=== PATIENT | female | born 1965 | race Caucasian/White ===

== ENCOUNTER 2023-08-17 21:38 | Emergency (ER) | payer MEDICARE, SELFPAY ==
[2023-08-17 22:15] VITALS: BP 125/65
[2023-08-17 22:36] LABS: % Basophils 0.5 % (0-2); % Eosinophils 1.1 % (0-6); % Immature Granulocytes 0.4 % (0-0.5); % Lymphocytes 40.5 % (20.5-51.1); % Monocytes 6.2 % (1.7-9.3); % Neutrophils 51.3 % (42.2-75.2); Absolute Eosinophils 0.1 10^3/uL (0-0.7); Absolute Lymphocytes 3.4 10^3/uL (1.2-3.4); Absolute Monocytes 0.5 10^3/uL (0.1-0.6); Absolute Neutrophils 4.3 10^3/uL (1.4-6.5); Hematocrit 38.7 % (37.0-47.0); Hemoglobin 13.9 g/dL (12.0-16.0); Mean Corp Hgb Conc. 35.9 g/dL (33.0-37.0); Mean Corpuscular Hgb 32.9 pg (27.0-31.0); Mean Corpuscular Volume 91.7 fL (81.0-99.0); Mean Platelet Volume 9.7 fL (7.4-10.4); Nucleated Red Blood Cells % 0 %; Platelet Count 272 10^3/uL (130-400); Red Blood Cell Count 4.22 10^6/uL (4.20-5.40); Red Cell Dist. Width 12.8 % (11.5-14.5); White Blood Cell Count 8.3 10^3/uL (4.8-10.8)
[2023-08-17 22:48] LABS: Lactic Acid 0.6 mmol/L (0.7-2.0)
[2023-08-17 22:49] LABS: ALT (SGPT) 37 U/L (0-35); AST (SGOT) 29 U/L (14-36); Albumin 4.1 g/dl (3.5-5.0); Alkaline Phosphatase 64 U/L (38-126); Blood Urea Nitrogen 7 mg/dl (7-17); Calcium 9.6 mg/dl (8.4-10.2); Carbon Dioxide 27 mmol/L (22-30); Chloride 101 mmol/L (98-107); Glucose 121 mg/dl (70-99); Lipase 68 U/L (23-300); Potassium 3.6 mmol/L (3.5-5.1); Sodium 135 mmol/L (135-145); Total Bilirubin 0.5 mg/dl (0.2-1.3); Total Protein 6.5 g/dl (6.3-8.2); eGFR > 60.00
[2023-08-18 04:14] LABS: Urine Albumin Negative (Neg - Trace); Urine Bilirubin Negative (Negative); Urine Character Clear (Clear); Urine Color Yellow; Urine Glucose Negative (Negative); Urine Ketone Negative (Negative); Urine Leukocyte 2+ (Negative); Urine Nitrite Negative (Negative); Urine Occult Blood Negative (Negative); Urine Urobilinogen 1+ (Neg - 1+)
[2023-08-18 04:37] LABS: Urine Bacteria Few (Negative); Urine Red Blood Cell 0-2 /HPF (0-2)
[2023-08-18 04:38] LABS: Urine Yeast Few (Negative)
[2023-08-18 04:55] VITALS: BP 97/45
--- NOTE | 2023-08-18 08:31 | ED.GENMED ---
History of Present Illness
General
Chief Complaint: Abdominal Pain
Source: patient
Exam Limitations: none
Time Seen by Provider: 08/18/23 08:10
Nursing documentation reviewed up to this point in time: agreed with
Travel History
Have you had any contact with someone who has COVID-19?: No
Do you have any symptoms of coronavirus? Fever > 100 degrees, chills, cough, shortness of breath, sore throat, loss of taste or smell, muscle aches, or headache?: No
History of Present Illness
History of Present Illness:
58 y/o F with h/o chronic abdominal pain, opiate dependence for chronic neck pain
here with episodic chronic abdominla pain
flare up last night
spasms/cramps that are intense with nausea diffuse abdominal region and into her back
the symptoms have fully resolved after unfortuantely long wait in the ER waiting area
she has had a full w/u for this, via pcp, GI (multiple)
with labs, ct scans x several, colonoscopy, endoscopy
has been told she could have IBS or opiate induced constipation
but she doesn't believe these diagnoses are causing her pain. she wants another opinion at [facility] and is planning on scheduling a new GI appt there
she has had chronic petechiae on her arms that are unexplained but she said more recent blood work showed elevated PTT slightly but she isn't sure the number. she was told she should see a patient information coordinator but hasn't yet
this is not a new symptom
no bleeding from nose, stool
no current cp, sob
she is a chronic smoker
she has not weaver hieu exertional chest pain, pleuritic pain, fever, chills, dysuria, urinary frequency
there are no new sypmtoms today than chronically for year sbut the pain episodes are worsening in intensity which is why she came last night
Past History
Past History
ED Past Medical History: GERD (barretts) and Other (cervical radiculopathy, OA)
ED Past Surgical History: None
Social History
Tobacco: Smoker
Review of Systems
Review of Systems
Allergies reviewed?: Yes
All Other Systems: Not applicable
Phy Exam
Physical Exam
Physical Exam:
GENERAL: Alert , in no apparent distress, well appearing
EYE: pupils equal and reactive
NECK: Supple
ENT: o/p clr, mmm.
CARDIAC: Regular rate and rhythm .
LUNGS: crackles in lungs b/l, chronic smokers cough, no tachypnea
ABDOMEN: Soft, without focal tenderness, no r/g, no cvat, normal bowel sounds, nonodistended
NEUROLOGICAL: Alert and oriented, no focal neuro deficits
SKIN: Warm and dry, skin intact.
petechaie arms and legs
MUSCULOSKELETAL: No edema, well perfused. neg moshe's sign
PSYCH: Normal and appropriate interaction.
Course
Orders/Labs/Results
Orders:
Orders
08/17/23 22:29
Complete Blood Count/With Diff Urgent
Comprehensive Metabolic Panel Urgent
Lactic Acid Urgent
Lipase Urgent
08/18/23 00:50
ECG [Electrocardiogram (*1)] Urgent
Reason for Study: Chest Pain
08/18/23 00:51
EKG- Treatment ONCE
08/18/23 04:01
Urinalysis Reflex To Culture Urgent
Date Specimen was Collected: 08/18/23
Time Specimen was Collected: 03:49
Urine Microscopic Reflex Cult Urgent
Urine Culture Urgent
GRIS Source: U
Specimen Description:
Date Specimen was Collected: 08/18/23
Time Specimen was Collected: 03:49
08/18/23 08:30
CR Chest - 2 Views Urgent
Comment:
Reason For Exam: crackles
08/18/23 08:32
CR Abdomen - 2 Views Urgent
Reason For Exam: abd emily
Abnormal Lab Results
08/17/23 08/18/23
22:29 04:01
MCH 32.9 H pg
(27.0-31.0)
Creatinine 0.5 L mg/dL
(0.6-1.0)
Glucose 121 H mg/dl
(70-99)
Lactic Acid 0.6 L mmol/L
(0.7-2.0)
ALT 37 H U/L
(0-35)
Leukocyte Esterase Rfl 2+ A
(Negative)
Urine WBC (Reflex) 11-15 A /HPF
(0-5)
Urine Bacteria (Reflex) Few A
(Negative)
Urine Yeast Few A
(Negative)
08/17/23 22:29
08/17/23 22:29
Vital Signs
Initial and Last Documented VS:
Initial Vital Signs
Temp Pulse Resp BP Pulse Ox
98.3 F 99 20 125/65 97
08/17/23 22:15 08/17/23 22:15 08/17/23 22:15 08/17/23 22:15 08/17/23 22:15
Last Documented Vital Signs
Temp Pulse Resp BP Pulse Ox
98.4 F 82 17 96/56 98
08/18/23 09:14 08/18/23 09:14 08/18/23 09:14 08/18/23 09:14 08/18/23 09:14
MDM/Problems Addressed
Differential Diagnosis Includes:
chronic abdominla pain, IBS, constipation, opiate withdrawal,
MDM/Problems Addressed:
58 y/o F smoker
ho chronic pain on opiates
here last night for ab pain crampy diffuse with pains to her back which is c/w her chroinc pain episodes
pt has had a very thorough w/u by multiple GI doctors without diagnoses that she believes are the cause
she is seeking another opinion
came here last night because pain was bad again but now it resolve dwhile waiting to be seen
she has a chronic cough from smoking, not worse than usual
no vomiting, diarrhea, constipation, weakness, fever, urainry symptoms
on exam she has a flat nondistended abdomen without any tendenress
she has some crackles in her lungs probably from chronic smoking
cxr and abd xray indep reviewed and neg for acute findings
she has labs which are unremarlabe
normal plt
normal wbc
she feels comfortable going home at this point
asking for pain medication for cramps when they return
she doesn't blieeve she has tried dicyclomine
return precautions
*Critical Care Note
Total Time (30-74mins, 75-104mins- exclusive of procedures): Not Applicable
ED Attending Note
-
Portions of this chart may have been created with voice recognition software.� Occasional wrong word or��sound alike� substitutions may have occurred due to the inherent limitations of voice recognition software.
Discharge Plan
Departure
Patient Disposition: Home (Routine Discharge)
Date of Disposition: 08/18/23
Time of Disposition: 09:35
Patient with high blood pressure during this ER visit?: No
Condition: Fair
Covid-19: Not Applicable
Discharge Problem:
Abdominal pain
Instructions: Abdominal Pain
Prescriptions:
New
dicyclomine 20 mg tablet
20 mg PO QID PRN (Reason: ABDOMINAL PAIN) Qty: 20 0RF
No Action
hydrocodone-acetaminophen 1 EACH tablet
1 ea PO Q4H PRN (Reason: pain)
clonazepam 1 MG tablet
1 mg PO HS PRN (Reason: anxiety)
pantoprazole [Protonix] 20 MG tablet,delayed release (DR/EC)
20 mg PO DAILY
venlafaxine 37.5 MG tablet
37.5 mg PO DAILY
morphine 15 MG tablet
15 mg PO BID
diclofenac sodium [Voltaren] 100 GM gel
150 gm TP PRN (Reason: pain)
cannabidiol [Epidiolex] 1 UNIT solution
1 unit PO HS PRN (Reason: sleep and pain)
Referrals:
Dhaval Regalado, DO [Family Provider] - Follow up in 2-3 days
Activity Restrictions/Additional Instructions:
YOUR BLOOD WORK WAS REASSURING
YOU HAVE GAS IN YOUR BOWELS BUT NO SIGN OF BOWEL OBSTRUCTION
YOU SHOULD CONTINUE TO FOLLOW UP WITH GI AND YOUR FAMILYDOCTOR
IN THE MEANTIME, YOU CAN TRY DICYCLOMINE 20 MG 2-4 TIMES A DAY NEEDED FOR CRAMPY ABDOMIANL PAIN WHEN YOU HAVE IT
YOU DO NOT NEED TO TAKE THIS MEDICATION UNLESS YOU HAVE THE PAIN
CONTINUE YOUR BOWEL REGIMEN TO MAKE SURE YOU DO NOT GET CONSTIPATED
RETURN FOR FEVER, VOMITING, DISTENSION OF YOUR ABDOMEN, BLOODY STOOL OR BLACK STOOL OR ANY CONCERNS.
Interventions
Interventions:
*Risk Screen - Suicide Last Done: 08/17/23 22:15
*General Assessment Last Done: 08/17/23 22:15
*Neglect/Abuse Screening Last Done: 08/17/23 22:15
ED- Fall Risk Assessment Last Done: 08/18/23 09:17
*ED COVID-19 Vaccine History Last Done: 08/18/23 09:17
*Nursing Disposition Last Done: 08/18/23 09:50
CF-Rifxgp-Pfvtoaebfi Assessment Last Done: 08/18/23 09:16
Discharge Date and Time
Discharge Date/Time: 08/18/23 09:51
Print Language: NICARAGUAN
[2023-08-18 09:14] VITALS: BP 96/56
[2023-08-18 09:16] VITALS: BMI 17.9
== END 2023-08-18 09:51 | disposition home or self-care (01) ==
LOC: EMR 21:38
PROVIDERS: Emergency Medicine; EMERGENCY PHYSICIAN Emergency Medicine; FAMILY PHYSICIAN Family Medicine
DX: R10.84 Generalized abdominal pain (principal); R11.0 Nausea; M54.9 Dorsalgia, unspecified; M62.838 Other muscle spasm; M54.2 Cervicalgia; G89.29 Other chronic pain; R23.3 Spontaneous ecchymoses; K21.9 Gastro-esophageal reflux disease without esophagitis; K22.70 Barrett's esophagus without dysplasia; M54.12 Radiculopathy, cervical region; M19.90 Unspecified osteoarthritis, unspecified site; R05.3 Chronic cough; F17.200 Nicotine dependence, unspecified, uncomplicated; Z79.891 Long term (current) use of opiate analgesic; Z88.1 Allergy status to other antibiotic agents
CPT/HCPCS: 99283; 71046; 74019; 80053; 81003; 81015; 83605; 83690; 85025; 87086; 93005

== ENCOUNTER 2023-08-19 18:10 | Emergency (ER) | payer MEDICARE, SELFPAY ==
[2023-08-19 18:17] VITALS: BP 106/68
--- NOTE | 2023-08-19 18:18 | ED.PDOC.TR ---
ED Provider Triage
-
Patient seen by provider in Triage?: Seen in Triage
* Initially assessed in triage to facilitate rapid assessment/initial workup *
58 yo female seen in ED 2d ago for abdominal pain. Chronic abd pain, buttermaker continuous churn narcotic use. Had labs/imaging, unremarkable. REQUESTING PHYSICIAN ONLY EVALUATION. Will hold off labs.
--- NOTE | 2023-08-19 19:58 | ED.GENMED ---
History of Present Illness
General
Chief Complaint: Abdominal Pain
Source: patient
Exam Limitations: none
Time Seen by Provider: 08/19/23 19:48
Travel History
Have you had any contact with someone who has COVID-19?: No
Do you have any symptoms of coronavirus? Fever > 100 degrees, chills, cough, shortness of breath, sore throat, loss of taste or smell, muscle aches, or headache?: No
History of Present Illness
History of Present Illness:
58-year-old female complaining of recurrent abdominal pain. Mostly towards the right upper quadrant with some radiation to the back. This is been an issue for 3 years. She has seen multiple specialist. She has had regular colonoscopies and
endoscopies. 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 Source of her pain is unknown. She was here 36 hours ago for the same with normal labs. She was pain-free upon discharge yesterday. Pain was worse this morning although now it is minimal. No
fever no vomiting no other complaints.
Past History
Past History
ED Past Medical History: GERD (barretts) and Other (cervical radiculopathy, OA)
ED Past Surgical History: Cholecystectomy and Gynecological
Social History
Tobacco: Smoker
Review of Systems
Review of Systems
All Other Systems: Not applicable
Constitutional: Denies fever
Respiratory: Reports no symptoms
Cardiac: Reports no symptoms
: Reports no symptoms
Phy Exam
Physical Exam
Physical Exam:
GENERAL: Alert and oriented in no apparent distress. Currently reading a magazine
EYE: Orbits normal.
NECK: Supple
CARDIAC: Regular rate and rhythm without any obvious murmurs.
LUNGS: Clear breath sounds,normal
ABDOMEN: Soft, mild epigastric tenderness. No rebound or guarding no mass or hernia
NEUROLOGICAL: Alert and oriented , grossly non-focal
SKIN: Warm and dry, no rash or lesion, no discoloration, skin intact.
MUSCULOSKELETAL: No edema,no deformity.Good color
PSYCH: Normal and appropriate interaction.
Course
Orders/Labs/Results
Orders:
Orders
08/19/23 19:57
CT Abd/pel W Iv And Oral Contr Urgent
Comment:
Reason For Exam: Recurring upper abdominal pain
IV Insert/Care/Rem.- Treatment PRN
0.9% Sodium Chloride 500 ml [Nss] 500 ml IV BOLUS
Diphenhydramine [Benadryl] 25 mg IV NOW STA
Hydrocortisone Sod Succinate [Solu-Cortef] 200 mg IV NOW STA
Iohexol [Omnipaque] See Protocol PO NOW STA
08/19/23 20:13
Complete Blood Count/With Diff Urgent
Comprehensive Metabolic Panel Urgent
Lipase Urgent
PTT Urgent
Prothrombin Time Urgent
Abnormal Lab Results
08/19/23
20:13
MCH 32.6 H pg
(27.0-31.0)
Absolute Lymphs (auto) 4.0 H 10^3/uL
(1.2-3.4)
APTT 36.3 H Sec
(23.4-35.0)
Creatinine 0.5 L mg/dL
(0.6-1.0)
08/19/23 20:13
08/19/23 20:13
Vital Signs
Initial and Last Documented VS:
Initial Vital Signs
Temp Pulse Resp BP Pulse Ox
98.6 F 97 18 106/68 98
08/19/23 18:17 08/19/23 18:17 08/19/23 18:17 08/19/23 18:17 08/19/23 18:17
Last Documented Vital Signs
Temp Pulse Resp BP Pulse Ox
98.6 F 82 18 110/70 99
08/19/23 18:17 08/20/23 00:45 08/20/23 00:45 08/20/23 00:45 08/20/23 00:45
MDM/Problems Addressed
Differential Diagnosis Includes:
This is a chronic issue for this patient she is clinically stable and nontoxic. Low suspicion for acute issue. However given the rebound given the progression of symptoms described over the last 48 hours I stated to her the only way I could be
sure that there was nothing more emergent going on would be to CAT scan her. Radiation risk was discussed. She is okay with this.
*Radiology
Radiology exam reviewed: radiology read reviewed (No acute findings. Some prominent loops of small bowel possible underlying ileitis or enteritis)
*Pulse Oximetry
Patient hypoxic: no
*Critical Care Note
Total Time (30-74mins, 75-104mins- exclusive of procedures): Not Applicable
Data Reviewed
Review of Other/Old Records Reveals: Labs, Records, Radiology Studies and Testing
Update Note
Update Note:
Possible enteritis by CT scan. Nothing serious surgical or anything that warrants admission. Symptomatic treatment and follow-up. Copy of CT report given to patient.
ED Attending Note
-
Portions of this chart may have been created with voice recognition software.� Occasional wrong word or��sound alike� substitutions may have occurred due to the inherent limitations of voice recognition software.
Discharge Plan
Departure
Patient Disposition: Home (Routine Discharge)
Date of Disposition: 08/20/23
Time of Disposition: 00:33
Patient with high blood pressure during this ER visit?: No
Discharge Problem:
Acute on chronic abdominal pain, Possible enteritis
Instructions: Abdominal Pain
Prescriptions:
No Action
hydrocodone-acetaminophen 1 EACH tablet
1 ea PO Q4H PRN (Reason: pain)
clonazepam 1 MG tablet
1 mg PO HS PRN (Reason: anxiety)
pantoprazole [Protonix] 20 MG tablet,delayed release (DR/EC)
20 mg PO DAILY
venlafaxine 37.5 MG tablet
37.5 mg PO DAILY
morphine 15 MG tablet
15 mg PO BID
diclofenac sodium [Voltaren] 100 GM gel
150 gm TP PRN (Reason: pain)
cannabidiol [Epidiolex] 1 UNIT solution
1 unit PO HS PRN (Reason: sleep and pain)
dicyclomine 20 mg tablet
20 mg PO QID PRN (Reason: ABDOMINAL PAIN) Qty: 20 0RF
Referrals:
Dhaval Regalado, DO [Family Provider] - Follow up in 2-3 days
Activity Restrictions/Additional Instructions:
Follow-up closely with your primary physician and internal control analyst
Interventions
Interventions:
*Risk Screen - Suicide Last Done: 08/19/23 18:19
*General Assessment Last Done: 08/19/23 18:19
*Neglect/Abuse Screening Last Done: 08/19/23 18:19
ED- Fall Risk Assessment Last Done: 08/19/23 20:55
*ED COVID-19 Vaccine History Last Done: 08/20/23 00:45
*Nursing Disposition Last Done: 08/20/23 00:45
NK-Hxiwes-Ytxwgujdve Assessment Last Done: 08/19/23 20:55
Discharge Date and Time
Discharge Date/Time: 08/20/23 00:46
Print Language: WOLOF
[2023-08-19 20:19] LABS: % Basophils 0.5 % (0-2); % Eosinophils 1.9 % (0-6); % Immature Granulocytes 0.2 % (0-0.5); % Lymphocytes 48.2 % (20.5-51.1); % Monocytes 5.2 % (1.7-9.3); Absolute Eosinophils 0.2 10^3/uL (0-0.7); Absolute Monocytes 0.4 10^3/uL (0.1-0.6); Absolute Neutrophils 3.6 10^3/uL (1.4-6.5); Hematocrit 39.2 % (37.0-47.0); Mean Corp Hgb Conc. 35.7 g/dL (33.0-37.0); Mean Corpuscular Hgb 32.6 pg (27.0-31.0); Mean Corpuscular Volume 91.4 fL (81.0-99.0); Mean Platelet Volume 9.7 fL (7.4-10.4); Nucleated Red Blood Cells % 0 %; Platelet Count 260 10^3/uL (130-400); Red Blood Cell Count 4.29 10^6/uL (4.20-5.40); Red Cell Dist. Width 12.8 % (11.5-14.5); White Blood Cell Count 8.2 10^3/uL (4.8-10.8)
[2023-08-19] MEDS: SOLU-CORTEF 200 MG IV (20:19)
[2023-08-19] MEDS: NSS 500 IV (20:20)
[2023-08-19] MEDS: BENADRYL 25 MG IV (20:20)
[2023-08-19] MEDS: OMNIPAQUE 50 ML PO (20:28)
[2023-08-19 20:41] LABS: APTT 36.3 Sec (23.4-35.0)
[2023-08-19 20:44] LABS: ALT (SGPT) 28 U/L (0-35); AST (SGOT) 29 U/L (14-36); Albumin 4.2 g/dl (3.5-5.0); Alkaline Phosphatase 54 U/L (38-126); Blood Urea Nitrogen 7 mg/dl (7-17); Calcium 9.6 mg/dl (8.4-10.2); Carbon Dioxide 28 mmol/L (22-30); Chloride 101 mmol/L (98-107); Glucose 90 mg/dl (70-99); Lipase 71 U/L (23-300); Sodium 135 mmol/L (135-145); Total Bilirubin 0.5 mg/dl (0.2-1.3); Total Protein 6.5 g/dl (6.3-8.2); eGFR > 60.00
[2023-08-19 20:59] LABS: INR 1.09; PT 13.9 Sec (11.4-14.6)
[2023-08-20 00:45] VITALS: BP 110/70
== END 2023-08-20 00:46 | disposition home or self-care (01) ==
LOC: EMR 18:10
PROVIDERS: EMERGENCY PHYSICIAN Emergency Medicine; FAMILY PHYSICIAN Family Medicine
DX: R10.11 Right upper quadrant pain (principal); M54.9 Dorsalgia, unspecified; G89.29 Other chronic pain; K21.9 Gastro-esophageal reflux disease without esophagitis; M54.12 Radiculopathy, cervical region; M19.90 Unspecified osteoarthritis, unspecified site; K22.70 Barrett's esophagus without dysplasia; Z90.49 Acquired absence of other specified parts of digestive tract; F17.200 Nicotine dependence, unspecified, uncomplicated; Z88.1 Allergy status to other antibiotic agents
CPT/HCPCS: 99285; 96375; 96361 ×2; 96374; 74177; 80053; 83690; 85025; 85610; 85730; Q9967

== ENCOUNTER 2023-09-20 05:31 | Emergency (ER) | payer MEDICARE, SELFPAY ==
[2023-09-20 05:33] VITALS: BP 106/62
[2023-09-20 06:43] VITALS: BMI 17.9
--- NOTE | 2023-09-20 06:49 | ED.GENMED ---
History of Present Illness
General
Chief Complaint: Abdominal Pain
Source: patient
Exam Limitations: none
Time Seen by Provider: 09/20/23 06:39
History of Present Illness
History of Present Illness:
58-year-old female here with recurrent abdominal pain. This been going on for 3 years. She has seen GI physicians in [place]. She had an upper endoscopy in March and a colonoscopy in April that she states were essentially unremarkable. She
did have a small polyp removed at that time. Her GI docs in [place] where they feel is opioid-induced constipation causing her pain. However she has had a 15 pound weight loss over the last 5 to 6 months. She also notes friable skin. Bowel
movements about every other day. She gets this abdominal pain on almost a daily basis that is very frustrated. She states 'I know this is not an emergency but I am tired of dealing with this '.
Past History
Past History
ED Past Medical History: GERD (barretts) and Other (cervical radiculopathy, OA)
ED Past Surgical History: Cholecystectomy and Gynecological
Social History
Tobacco: Smoker
Review of Systems
Review of Systems
All Other Systems: Not applicable
Constitutional: Reports weight loss; Denies fever or chills
Respiratory: Reports no symptoms
Cardiac: Reports no symptoms
Phy Exam
Physical Exam
Physical Exam:
GENERAL: Alert and oriented in no apparent distress. Thin and moderately cachectic
EYE: Orbits normal.
NECK: Supple
CARDIAC: Regular rate and rhythm without any obvious murmurs.
LUNGS: Clear breath sounds,normal
ABDOMEN: Soft, without focal tenderness or distention
NEUROLOGICAL: Alert and oriented , grossly non-focal
SKIN: Warm and dry, areas of minor skin breakdown to the lower extremities
MUSCULOSKELETAL: No edema,no deformity.Good color
PSYCH: Normal and appropriate interaction.
Course
Orders/Labs/Results
Orders:
Orders
09/20/23 06:55
Complete Blood Count/With Diff Urgent
Comprehensive Metabolic Panel Urgent
Lipase Urgent
Abnormal Lab Results
09/20/23
06:55
RBC 4.03 L 10^6/uL
(4.20-5.40)
MCH 33.0 H pg
(27.0-31.0)
Absolute Lymphs (auto) 4.1 H 10^3/uL
(1.2-3.4)
Total Protein 6.1 L g/dl
(6.3-8.2)
09/20/23 06:55
09/20/23 06:55
Vital Signs
Initial and Last Documented VS:
Initial Vital Signs
Temp Pulse Resp BP Pulse Ox
97.4 F 88 22 106/62 98
09/20/23 05:33 09/20/23 05:33 09/20/23 05:33 09/20/23 05:33 09/20/23 05:33
Last Documented Vital Signs
Temp Pulse Resp BP Pulse Ox
97.4 F 66 15 94/52 95
09/20/23 05:33 09/20/23 08:00 09/20/23 08:00 09/20/23 08:00 09/20/23 08:00
*Critical Care Note
Total Time (30-74mins, 75-104mins- exclusive of procedures): Not Applicable
Data Reviewed
Review of Other/Old Records Reveals: Labs, Records, Radiology Studies and Testing
ED Attending Note
-
Portions of this chart may have been created with voice recognition software.� Occasional wrong word or��sound alike� substitutions may have occurred due to the inherent limitations of voice recognition software.
Discharge Plan
Departure
Patient Disposition: Home (Routine Discharge)
Date of Disposition: 09/20/23
Time of Disposition: 09:00
Patient with high blood pressure during this ER visit?: No
Discharge Problem:
Recurrent abdominal pain
Instructions: Abdominal Pain
Prescriptions:
No Action
pantoprazole [Protonix] 20 MG tablet,delayed release (DR/EC)
20 mg PO DAILY
morphine 15 MG tablet
15 mg PO BIDPRN PRN (Reason: pain)
Epidiolex 1 UNIT solution
1 unit PO HS PRN (Reason: sleep and pain)
albuterol sulfate 90 mcg/actuation Hfa Aerosol Inhaler
1 - 2 puff INHALATION DAILYPRN PRN (Reason: sob)
Referrals:
NONE,* [Family Provider] -
Haven Goldstein MD [Active] - Follow up in 2-3 days
Activity Restrictions/Additional Instructions:
Call the GI physician Thursday morning for follow-up. Tell them we talked to the GI doctor
Interventions
Interventions:
*Risk Screen - Suicide Last Done: 09/20/23 05:33
*General Assessment Last Done: 09/20/23 06:43
*Neglect/Abuse Screening Last Done: 09/20/23 05:33
*ED COVID-19 Vaccine History Last Done: 09/20/23 06:43
*Nursing Disposition Last Done: 09/20/23 09:00
QC-Rrbgiw-Ycslhaxsii Assessment Last Done: 09/20/23 07:45
Discharge Date and Time
Discharge Date/Time: 09/20/23 09:27
Print Language: CENTRAL AFRICAN
--- NOTE | 2023-09-20 06:49 | EDRN ---
Pt has had chronic lower abd pain radiating into her back for 3 years. Pt developed RUQ abd pain few days ago and says it is different than her usual pain. Pt reports she has lost 15 pounds in past few months without trying to do so. Pt has been
drinking high calorie shakes in an attempt to gain weight. Pt spoke with her pain management doctor and was advised to go to a GI doctor and mention pancreatic insufficiency. GI doc pt wants to go to cannot see her until the end of December. Pt
reports a lot of fatigue which she has had for few months. Pt has chronic constipation and says she was told it is opioid induced 'that is ridiculous' pt says. Last BM 2 days ago which is normal for her. Pt has intermittent nausea, no vomiting.
Pt has intermittent chills and says she is always cold. Pt denies cp, sob, fever. Pt says she does not have current urinary symptoms but often feels a lot of pressure in her bladder.
[2023-09-20 07:13] VITALS: BP 97/50
[2023-09-20 07:23] LABS: % Basophils 0.6 % (0-2); % Eosinophils 1.4 % (0-6); % Immature Granulocytes 0.3 % (0-0.5); % Lymphocytes 38.3 % (20.5-51.1); % Monocytes 4.6 % (1.7-9.3); % Neutrophils 54.8 % (42.2-75.2); ALT (SGPT) 22 U/L (0-35); AST (SGOT) 25 U/L (14-36); Absolute Basophils 0.1 10^3/uL (0-0.2); Absolute Eosinophils 0.2 10^3/uL (0-0.7); Absolute Lymphocytes 4.1 10^3/uL (1.2-3.4); Absolute Monocytes 0.5 10^3/uL (0.1-0.6); Absolute Neutrophils 5.9 10^3/uL (1.4-6.5); Albumin 4.2 g/dl (3.5-5.0); Alkaline Phosphatase 62 U/L (38-126); Blood Urea Nitrogen 15 mg/dl (7-17); Calcium 9.2 mg/dl (8.4-10.2); Carbon Dioxide 28 mmol/L (22-30); Chloride 104 mmol/L (98-107); Estimated Creatinine Clearance 70 ml/min; Glucose 96 mg/dl (70-99); Hematocrit 38.3 % (37.0-47.0); Hemoglobin 13.3 g/dL (12.0-16.0); Lipase 222 U/L (23-300); Mean Corp Hgb Conc. 34.7 g/dL (33.0-37.0); Mean Platelet Volume 9.9 fL (7.4-10.4); Nucleated Red Blood Cells % 0 %; Platelet Count 218 10^3/uL (130-400); Potassium 3.6 mmol/L (3.5-5.1); Red Blood Cell Count 4.03 10^6/uL (4.20-5.40); Red Cell Dist. Width 13.8 % (11.5-14.5); Sodium 137 mmol/L (135-145); Total Bilirubin 0.5 mg/dl (0.2-1.3); Total Protein 6.1 g/dl (6.3-8.2); White Blood Cell Count 10.8 10^3/uL (4.8-10.8); eGFR > 60.00
[2023-09-20 08:00] VITALS: BP 94/52
== END 2023-09-20 09:27 | disposition home or self-care (01) ==
LOC: EMR 05:31
PROVIDERS: EMERGENCY PHYSICIAN Emergency Medicine
DX: R10.9 Unspecified abdominal pain (principal); K21.9 Gastro-esophageal reflux disease without esophagitis; M19.90 Unspecified osteoarthritis, unspecified site; F17.200 Nicotine dependence, unspecified, uncomplicated; Z87.19 Personal history of other diseases of the digestive system; Z90.49 Acquired absence of other specified parts of digestive tract
CPT/HCPCS: 99283; 80053; 83690; 85025

== ENCOUNTER → 2023-09-21 19:43 | Outpatient (REF) | payer MEDICARE, SELFPAY | LOC: MRI 3T 19:43 | PROVIDERS: ATTENDING PHYSICIAN Family Medicine; REFERRING PHYSICIAN Specialist | DX: R10.84 Generalized abdominal pain (principal) | CPT/HCPCS: 74183; A9575 ==

== ENCOUNTER 2023-10-01 06:10 | Emergency (ER) | payer MEDICARE, SELFPAY ==
[2023-10-01 06:12] VITALS: BP 118/72
[2023-10-01 06:38] VITALS: BP 104/62
--- NOTE | 2023-10-01 06:46 | ED.GENMED ---
History of Present Illness
General
Chief Complaint: Rectal Bleeding
Source: patient
Exam Limitations: none
Time Seen by Provider: 10/01/23 06:34
History of Present Illness
History of Present Illness:
See MDM
Past History
Past History
ED Past Medical History: GERD (barretts) and Other (cervical radiculopathy, OA)
ED Past Surgical History: Cholecystectomy and Gynecological
Social History
Tobacco: Smoker
Phy Exam
Physical Exam
Physical Exam:
See MDM
Course
Orders/Labs/Results
Orders:
Orders
10/01/23 06:46
Complete Blood Count/With Diff Urgent
Comprehensive Metabolic Panel Urgent
Lipase Urgent
Abnormal Lab Results
10/01/23
06:46
RBC 4.15 L 10^6/uL
(4.20-5.40)
MCH 33.0 H pg
(27.0-31.0)
Abs Immat Gran (auto) 0.1 H 10^3/uL
(0-0.05)
Absolute Lymphs (auto) 4.3 H 10^3/uL
(1.2-3.4)
Creatinine 0.5 L mg/dL
(0.6-1.0)
Lipase 335 H U/L
(23-300)
10/01/23 06:46
10/01/23 06:46
Vital Signs
Initial and Last Documented VS:
Initial Vital Signs
Temp Pulse Resp BP Pulse Ox
98.5 F 85 16 118/72 100
10/01/23 06:12 10/01/23 06:12 10/01/23 06:12 10/01/23 06:12 10/01/23 06:12
Last Documented Vital Signs
Temp Pulse Resp BP Pulse Ox
98.5 F 85 16 104/62 95
10/01/23 06:12 10/01/23 06:12 10/01/23 06:12 10/01/23 06:38 10/01/23 06:39
MDM/Problems Addressed
Differential Diagnosis Includes:
HPI and MDM Narrative:
58-year-old female presenting for evaluation of rectal bleeding. Patient had mild abdominal discomfort and then had a bowel movement. Patient was concerned because it looked red. Of note, patient has had recent CT of her abdomen/pelvis and a
recent abdominal MRI both of which showed no acute abnormality. She has no prior history of diverticulosis. She does have a history of polyps but had 1 removed approximately 6 months ago. She denies current rectal pain or abdominal pain. She
does acknowledge that she has been eating red hot crunchy cheese puffs with a dark red powder coating. She is unsure if it was related to the food. She took a picture of her bowel movement which I evaluated. There is no concerning blood on the
picture. She also brought her own stool sample which was negative for blood with guaiac testing.
We discussed that her symptoms are likely related to the food intake but will obtain basic blood work
Physical exam
General: Well appearing and non-toxic
HEENT: protecting airway
Neck: appears supple
CV: No evidence of cyanosis
Resp: No accessory muscle use
Abd: Non-distended. Soft and nontender
Extremities: No deformities
Neuro: alert
Psych: Normal affect
Skin: Intact
Problems Addressed including Acute and Chronic Conditions affecting care:
1. Red stool
Acuity: acute
Prognosis: stable
Details: Likely related to her food intake from the dye. The stool is guaiac negative and her abdomen is soft and nontender.
Updates
Hemoglobin stable. No recurrent episodes in the emergency department. We went over her mildly elevated lipase and discussed have this reevaluated by her PCP and GI
Differential Diagnosis (but not limited to): Discolored stool from food dye, rectal bleeding, constipation
Testing considered: Repeat imaging but she just had a CT and MRI
Drug therapy (if applicable): OTC meds, please see d/c instruction regarding Rx drugs
Amount and/or Complexity of Data Reviewed
Clinical info obtained from: Patient
External data reviewed: Recent outpatient MRI shows no acute abdominal pathology
Labs I independently reviewed (but not limited to): Hemoglobin, lipase
Radiology: N/A
Pulse Ox: not hypoxic
EKG independently reviewed: N/A
[place]: N/A
Critical Care: N/A
Risk of Complication:
Social Determinants of health: Good social support
Discussed with other providers: N/A
Escalation of Care includes Admit/Obs: After being observed in the Emergency Department, pt stable for discharge.
Occasional wrong word or 'sound a like' substitutions may have occurred due to the inherent limitations of voice recognition software. Read the chart carefully and recognize, using context, where substitutions have occurred.
*Critical Care Note
Total Time (30-74mins, 75-104mins- exclusive of procedures): Not Applicable
ED Attending Note
-
Portions of this chart may have been created with voice recognition software.� Occasional wrong word or��sound alike� substitutions may have occurred due to the inherent limitations of voice recognition software.
Discharge Plan
Departure
Patient Disposition: Home (Routine Discharge)
Date of Disposition: 10/01/23
Time of Disposition: 08:08
Patient with high blood pressure during this ER visit?: No
Discharge Problem:
Abdominal pain
Prescriptions:
No Action
pantoprazole [Protonix] 20 MG tablet,delayed release (DR/EC)
20 mg PO DAILY
albuterol sulfate 90 mcg/actuation Hfa Aerosol Inhaler
1 - 2 puff INHALATION R DAILYPRN PRN (Reason: sob)
trazodone 50 mg Tablet
50 mg PO HSPRN PRN (Reason: sleep)
hydrocodone-acetaminophen 5-325 mg Tablet
1 tab PO Q6HPRN PRN (Reason: moderate pains)
morphine 15 mg tablet extended release
15 mg PO BIDPRN PRN (Reason: severe pain)
topiramate 50 mg Tablet
50 mg PO NOON
Medical Marijuana
2 tsp PO DAILYPRN PRN (Reason: sleep)
Referrals:
Dhaval Regalado, [Family Provider] -
Activity Restrictions/Additional Instructions:
As we discussed, there was no evidence of bleeding from your rectum today. However, the elevated pancreas levels could explain the pain with eating. Please have this further evaluated by your primary care and kitchen supervisor.
Please return for any worsening symptoms.
You may return at any time if you have further concerns.
Thank you for choosing [facility].
Interventions
Interventions:
*Risk Screen - Suicide Last Done: 10/01/23 06:12
*General Assessment Last Done: 10/01/23 06:12
*Neglect/Abuse Screening Last Done: 10/01/23 06:12
ED- Fall Risk Assessment Last Done: 10/01/23 06:12
*ED COVID-19 Vaccine History Last Done: 10/01/23 06:12
TG-Swgjmr-Odxesqrmwl Assessment Last Done: 10/01/23 06:39
ED- Cardiac Assessment Last Done: 10/01/23 06:37
ED- Pulmonary Assessment Last Done: 10/01/23 06:38
Discharge Date and Time
Print Language: KOREAN
[2023-10-01 06:47] VITALS: BMI 17.2
[2023-10-01 07:25] LABS: % Basophils 0.5 % (0-2); % Eosinophils 1.8 % (0-6); % Immature Granulocytes 0.5 % (0-0.5); % Lymphocytes 42.5 % (20.5-51.1); % Monocytes 5.5 % (1.7-9.3); % Neutrophils 49.2 % (42.2-75.2); Absolute Basophils 0.1 10^3/uL (0-0.2); Absolute Eosinophils 0.2 10^3/uL (0-0.7); Absolute Immature Granulocytes 0.1 10^3/uL (0-0.05); Absolute Lymphocytes 4.3 10^3/uL (1.2-3.4); Absolute Monocytes 0.6 10^3/uL (0.1-0.6); Hematocrit 38.7 % (37.0-47.0); Hemoglobin 13.7 g/dL (12.0-16.0); Mean Corp Hgb Conc. 35.4 g/dL (33.0-37.0); Mean Corpuscular Volume 93.3 fL (81.0-99.0); Mean Platelet Volume 10.1 fL (7.4-10.4); Nucleated Red Blood Cells % 0 %; Platelet Count 286 10^3/uL (130-400); Red Blood Cell Count 4.15 10^6/uL (4.20-5.40); Red Cell Dist. Width 13.4 % (11.5-14.5); White Blood Cell Count 10.2 10^3/uL (4.8-10.8)
[2023-10-01 07:38] LABS: ALT (SGPT) 32 U/L (0-35); AST (SGOT) 32 U/L (14-36); Albumin 4.4 g/dl (3.5-5.0); Alkaline Phosphatase 71 U/L (38-126); Blood Urea Nitrogen 12 mg/dl (7-17); Calcium 9.6 mg/dl (8.4-10.2); Carbon Dioxide 27 mmol/L (22-30); Chloride 101 mmol/L (98-107); Estimated Creatinine Clearance 70 ml/min; Glucose 80 mg/dl (70-99); Lipase 335 U/L (23-300); Potassium 4.1 mmol/L (3.5-5.1); Sodium 135 mmol/L (135-145); Total Bilirubin 0.4 mg/dl (0.2-1.3); Total Protein 6.5 g/dl (6.3-8.2); eGFR > 60.00
== END 2023-10-01 08:22 | disposition home or self-care (01) ==
LOC: EMR 06:10
PROVIDERS: EMERGENCY PHYSICIAN Student in an Organized Health Care Education/Training Program; FAMILY PHYSICIAN Family Medicine
DX: R10.9 Unspecified abdominal pain (principal); F17.200 Nicotine dependence, unspecified, uncomplicated
CPT/HCPCS: 99283; 80053; 83690; 85025

== ENCOUNTER 2024-03-27 18:58 | Emergency (ER) | payer MEDICARE, SELFPAY ==
[2024-03-27 19:07] VITALS: BP 94/55
[2024-03-27 19:26] LABS: % Basophils 0.6 % (0-2); % Eosinophils 1.1 % (0-6); % Immature Granulocytes 0.3 % (0-0.5); % Lymphocytes 36.2 % (20.5-51.1); % Monocytes 5.3 % (1.7-9.3); % Neutrophils 56.5 % (42.2-75.2); Absolute Basophils 0.1 10^3/uL (0-0.2); Absolute Eosinophils 0.1 10^3/uL (0-0.7); Absolute Lymphocytes 3.4 10^3/uL (1.2-3.4); Absolute Monocytes 0.5 10^3/uL (0.1-0.6); Absolute Neutrophils 5.3 10^3/uL (1.4-6.5); Hematocrit 43.6 % (37.0-47.0); Hemoglobin 15.1 g/dL (12.0-16.0); Mean Corp Hgb Conc. 34.6 g/dL (33.0-37.0); Mean Corpuscular Hgb 33.1 pg (27.0-31.0); Mean Corpuscular Volume 95.6 fL (81.0-99.0); Mean Platelet Volume 9.3 fL (7.4-10.4); Nucleated Red Blood Cells % 0 %; Platelet Count 252 10^3/uL (130-400); Red Blood Cell Count 4.56 10^6/uL (4.20-5.40); Red Cell Dist. Width 12.7 % (11.5-14.5); White Blood Cell Count 9.4 10^3/uL (4.8-10.8)
[2024-03-27 19:45] LABS: ALT (SGPT) 16 U/L (0-35); AST (SGOT) 22 U/L (14-36); Albumin 4.4 g/dl (3.5-5.0); Alkaline Phosphatase 53 U/L (38-126); Blood Urea Nitrogen 5 mg/dl (7-17); Calcium 9.4 mg/dl (8.4-10.2); Carbon Dioxide 26 mmol/L (22-30); Chloride 102 mmol/L (98-107); Glucose 109 mg/dl (70-99); Lipase 109 U/L (23-300); Potassium 4.1 mmol/L (3.5-5.1); Sodium 136 mmol/L (135-145); Total Bilirubin 0.4 mg/dl (0.2-1.3); Total Protein 6.5 g/dl (6.3-8.2); eGFR > 60.00
--- NOTE | 2024-03-27 20:14 | ED.GENMED ---
History of Present Illness
General
Chief Complaint: Abdominal Symptoms
Source: patient
Exam Limitations: none
Time Seen by Provider: 03/27/24 19:46
History of Present Illness
History of Present Illness:
This is a 59 year old female that comes in with c/o frequent Stools. States that she had the GI virus and had diarrhea. Now she is having stool that is pasty and sinks to the bottom of the toilet. States that she eats and then goes to the bathroom.
States that she has use Imodium as he has 3 stools today. States that she has had trouble gaining weight and eating. States that she has a lot of gas which she has had in the past. States that she has occasional abd discomfort. States that she feels
a little lightheaded. Denies any fever, chills. chest pain, SOB, abd pain, nausea, vomiting, diarrhea, headache, urinary burning.
Past History
Past History
ED Past Medical History: Asthma, GERD (barretts) and Other (cervical radiculopathy, OA, chronic neck and back pain, Watson's esophagus, )
ED Past Surgical History: Cholecystectomy, Gynecological ( fatmata tubes and Oophorectomy) and Tonsilectomy
Social History
Tobacco: Smoker
Alcohol: None
Personal:
Living: with family
Review of Systems
Review of Systems
All Other Systems: ROS reviewed and negative except as documented in HPI and ROS
Constitutional: Reports weight loss (Chronic); Denies fever or chills
EENT: Reports no symptoms
Respiratory: Reports no symptoms; Denies cough or trouble breathing
Cardiac: Reports no symptoms; Denies chest pain
ABD/GI: Reports abdominal pain (occasonal); Denies nausea, vomiting or diarrhea
: Reports no symptoms; Denies dysuria, frequency or urgency
Musculoskeletal: Reports no symptoms
Skin: Reports no symptoms
Neurological: Reports other (lightheaded); Denies dizzy or headache
Psychiatric: Reports no symptoms
Phy Exam
General Physical Exam
General Presentation: no apparent distress
General age: appears stated age
General Skin: warm and dry
General Habitus: elderly
General Mental: alert
General Hydration: appears well hydrated
ENT Exam
ENT Exam: TM's normal, pharynx normal and neck supple
Eye Exam
Eye Exam: EOMI
Cardiovascular Exam
Cardiovascular Exam: regular rate/rhythm, no edema, no murmur and normal peripheral pulses
Pulmonary Exam
Pulmonary Exam: lungs clear, no respiratory distress, no rales, chest non tender, no crackles, no rhonchi, no wheezing and no cough
Gastrointestinal Exam
Gastrointestinal Exam: normal bowel sounds, non tender, soft, no organomegaly, no pulsatile mass and non distended
Musculoskeletal Exam
Musculoskeletal Exam: full ROM and no edema
Skin Exam
Skin Exam: normal color, warm/dry, no rash and no petechia
Psychiatric Exam
Psychiatric Exam: normal mood/affect
Course
Orders/Labs/Results
Orders:
Orders
03/27/24 19:18
Complete Blood Count/With Diff Urgent
Comprehensive Metabolic Panel Urgent
Lipase Urgent
Abnormal Lab Results
03/27/24
19:18
MCH 33.1 H pg
(27.0-31.0)
BUN 5 L mg/dl
(7-17)
Glucose 109 H mg/dl
(70-99)
03/27/24 19:18
03/27/24 19:18
glucose nonfasting, Lipase normal at 109
Vital Signs
Initial and Last Documented VS:
Initial Vital Signs
Temp Pulse Resp BP Pulse Ox
98.0 F 86 14 94/55 97
03/27/24 19:07 03/27/24 19:07 03/27/24 19:07 03/27/24 19:07 03/27/24 19:07
Last Documented Vital Signs
Temp Pulse Resp BP Pulse Ox
98.0 F 86 14 94/55 97
03/27/24 19:07 03/27/24 19:07 03/27/24 19:07 03/27/24 19:07 03/27/24 19:07
MDM/Problems Addressed
MDM/Problems Addressed:
This is a 59 year old female that comes in with c/o soft stool. Patient had the GI Virus recently and know her stool is soft.
Will check labs. discussed with patient that soft stool is not diarrhea. Patient has no abd pain or tenderness with palpation. Explained that it will just take time for her bowel to get back to normal. Offered patient a CT scan but patient has
decided to wait and see her PCP and GI Specialist. Patient states that she has been given a little blue pill in the past here that she takes before eating to help her with her gas. Patient to return with any concerns .
Chronic conditions affecting care:
chronic weight loss,
Chronic conditions affecting care: Asthma
Acute Exacerbation and/or Progression of Chronic Illness:
NA
*Pulse Oximetry
Patient hypoxic: no
*EKG
Interpreted by ED Provider?: NA
Rate: EKG- N/A
*Licensed Marine Engineer Interpretation
Rate: Licensed Marine Engineer- N/A
*Critical Care Note
Total Time (30-74mins, 75-104mins- exclusive of procedures): Not Applicable
ED Attending Note
-
Portions of this chart may have been created with voice recognition software.� Occasional wrong word or��sound alike� substitutions may have occurred due to the inherent limitations of voice recognition software.
Discharge Plan
Departure
Patient Disposition: Home (Routine Discharge)
Date of Disposition: 03/27/24
Time of Disposition: 20:28
Patient with high blood pressure during this ER visit?: No
Condition: Good
Covid-19: Not Applicable
Discharge Problem:
Unspecified abdominal pain
Instructions: Abdominal Pain
Prescriptions:
New
dicyclomine 20 mg tablet
20 mg PO QID PRN (Reason: gastrointestinal issues) Qty: 20 0RF
No Action
pantoprazole [Protonix] 20 MG tablet,delayed release (DR/EC)
20 mg PO DAILY
albuterol sulfate 90 mcg/actuation Hfa Aerosol Inhaler
1 - 2 puff INHALATION R DAILYPRN PRN (Reason: sob)
trazodone 50 mg Tablet
50 mg PO HSPRN PRN (Reason: sleep)
hydrocodone-acetaminophen 5-325 mg Tablet
1 tab PO Q6HPRN PRN (Reason: moderate pains)
morphine 15 mg tablet extended release
15 mg PO BIDPRN PRN (Reason: severe pain)
topiramate 50 mg Tablet
50 mg PO NOON
Medical Marijuana
2 tsp PO DAILYPRN PRN (Reason: sleep)
Activity Restrictions/Additional Instructions:
As discussed, your blood work is normal. Your abd is nontender with palpation. This is soft stool not diarrhea. This will take time for your bowels to get back to normal after having the GI virus. Please increase your water intake to 8-8oz glasses
daily. Follow up with the family doctor and your GI specialist for further evaluation. A prescription to help with gas has been sent to your pharmacy. IF YOU HAVE ANY OTHER CONCERNS PLEASE RETURN TO THE EMERGENCY ROOM.
Interventions
Interventions:
*Risk Screen - Suicide Last Done: 03/27/24 19:07
*General Assessment Last Done: 03/27/24 19:07
*Neglect/Abuse Screening Last Done: 03/27/24 19:07
ED- Fall Risk Assessment Last Done: 03/27/24 20:14
*ED COVID-19 Vaccine History Last Done: 03/27/24 19:07
CT-Njrgqs-Zgykltzaue Assessment Last Done: 03/27/24 20:14
Discharge Date and Time
Print Language: SAMI
== END 2024-03-27 20:45 | disposition home or self-care (01) ==
LOC: EMR 18:58
PROVIDERS: Emergency Medicine; EMERGENCY PHYSICIAN Student in an Organized Health Care Education/Training Program; FAMILY PHYSICIAN Family Medicine
DX: R10.9 Unspecified abdominal pain (principal); J45.909 Unspecified asthma, uncomplicated; F17.200 Nicotine dependence, unspecified, uncomplicated
CPT/HCPCS: 99283; 80053; 83690; 85025

== ENCOUNTER 2024-04-24 16:54 | Emergency (ER) | payer MEDICARE, SELFPAY ==
[2024-04-24 16:57] VITALS: BP 99/63
[2024-04-24 17:19] LABS: % Basophils 0.6 % (0-2); % Eosinophils 0.8 % (0-6); % Immature Granulocytes 0.3 % (0-0.5); % Lymphocytes 34.3 % (20.5-51.1); % Monocytes 5.9 % (1.7-9.3); % Neutrophils 58.1 % (42.2-75.2); Absolute Basophils 0.1 10^3/uL (0-0.2); Absolute Eosinophils 0.1 10^3/uL (0-0.7); Absolute Lymphocytes 3.1 10^3/uL (1.2-3.4); Absolute Monocytes 0.5 10^3/uL (0.1-0.6); Absolute Neutrophils 5.3 10^3/uL (1.4-6.5); Hematocrit 41.3 % (37.0-47.0); Hemoglobin 14.6 g/dL (12.0-16.0); Mean Corp Hgb Conc. 35.4 g/dL (33.0-37.0); Mean Corpuscular Hgb 33.4 pg (27.0-31.0); Mean Corpuscular Volume 94.5 fL (81.0-99.0); Mean Platelet Volume 9.8 fL (7.4-10.4); Nucleated Red Blood Cells % 0 %; Platelet Count 226 10^3/uL (130-400); Red Blood Cell Count 4.37 10^6/uL (4.20-5.40); Red Cell Dist. Width 12.7 % (11.5-14.5)
[2024-04-24 17:39] LABS: ALT (SGPT) 13 U/L (0-35); AST (SGOT) 21 U/L (14-36); Albumin 4.5 g/dl (3.5-5.0); Alkaline Phosphatase 64 U/L (38-126); Blood Urea Nitrogen 6 mg/dl (7-17); Calcium 9.5 mg/dl (8.4-10.2); Carbon Dioxide 26 mmol/L (22-30); Chloride 100 mmol/L (98-107); Glucose 110 mg/dl (70-99); Potassium 3.5 mmol/L (3.5-5.1); Sodium 134 mmol/L (135-145); Total Bilirubin 0.6 mg/dl (0.2-1.3); Total Protein 6.4 g/dl (6.3-8.2); eGFR > 60.00
[2024-04-24 18:09] LABS: TSH Reflex To Free T4 0.86 uIU/ml (0.47-4.68)
--- NOTE | 2024-04-24 18:09 | ED.GENMED ---
History of Present Illness
General
Chief Complaint: Abdominal Pain
Source: patient
Exam Limitations: none
Time Seen by Provider: 04/24/24 18:01
History of Present Illness
History of Present Illness:
59-year-old female with ongoing issues of abdominal pain nausea constipation diarrhea. This has been a chronic issue. Patient is followed by GI. She has been scoped in the past. She has had multiple CT scans and MRI in the past that have not
stable. She saw her GI physician last week who recommended an x-ray but she could not get out for the x-ray. She did have a bowel movement today. No blood or mucus. No fever.
Past History
Past History
ED Past Medical History: Asthma, GERD (barretts) and Other (cervical radiculopathy, OA, chronic neck and back pain, Watson's esophagus, )
ED Past Surgical History: Cholecystectomy, Gynecological ( fatmata tubes and Oophorectomy) and Tonsilectomy
Social History
Tobacco: Smoker
Alcohol: None
Personal:
Living: with family
Review of Systems
Review of Systems
All Other Systems: Not applicable
Constitutional: Denies fever or chills
Respiratory: Reports no symptoms
Cardiac: Reports no symptoms
: Reports no symptoms
Phy Exam
Physical Exam
Physical Exam:
GENERAL: Alert and oriented in no apparent distress
EYE: Orbits normal.
NECK: Supple
CARDIAC: Regular rate and rhythm without any obvious murmurs.
LUNGS: Clear breath sounds,normal
ABDOMEN: Soft, no distention. Bowel sounds present. Mild epigastric tenderness. No rebound or guarding no mass or hernia
NEUROLOGICAL: Alert and oriented , grossly non-focal
SKIN: Warm and dry
PSYCH: Normal and appropriate interaction.
Course
Orders/Labs/Results
Orders:
Orders
04/24/24 17:00
Electrocardiogram (*1) Urgent
Reason for Study: Palpitations
EKG- Treatment ONCE
04/24/24 17:12
Complete Blood Count/With Diff Urgent
Comprehensive Metabolic Panel Urgent
Lipase Urgent
Comment: ADD ON
TSH Reflex To Free T4 Urgent
04/24/24 18:02
Add On- LAB Urgent
Tests Added?: lipase
04/24/24 18:08
CR Obstruct Series W/pa Chest Urgent
Comment:
Reason For Exam: Abdominal pain constipation
Abnormal Lab Results
04/24/24
17:12
MCH 33.4 H pg
(27.0-31.0)
Sodium 134 L mmol/L
(135-145)
BUN 6 L mg/dl
(7-17)
Glucose 110 H mg/dl
(70-99)
04/24/24 17:12
04/24/24 17:12
Vital Signs
Initial and Last Documented VS:
Initial Vital Signs
Temp Pulse Resp BP Pulse Ox
98.7 F 87 16 99/63 100
04/24/24 16:57 04/24/24 16:57 04/24/24 16:57 04/24/24 16:57 04/24/24 16:57
Last Documented Vital Signs
Temp Pulse Resp BP Pulse Ox
98.7 F 83 18 101/62 98
04/24/24 16:57 04/24/24 18:42 04/24/24 18:42 04/24/24 18:42 04/24/24 18:42
MDM/Problems Addressed
Differential Diagnosis Includes:
Patient's primary complaint is concerns for constipation. She clinically is not obstructed and does not have an acute surgical abdomen. Previous records reviewed and she has had multiple CTs in the past. I am reluctant to reCT urine do not feel
is medically necessary. Risk of radiation was discussed with the patient she is comfortable with just a plain x-ray. As for the palpitations there is no syncope or chest pain. She is describing nonspecific palpitations. Her EKG is stable.
*Radiology
Radiology exam reviewed: radiology read reviewed (Nonspecific gas pattern)
*EKG
Interpreted by ED Provider?: Yes
Comparison EKG: no changes
Heart Rate: 87
Rate: normal
Rhythm: sinus
[place]: normal axis
Interval: normal interval
QRS Pattern: right bundle branch block (hnc)
Ischemia: no ischemia
*Critical Care Note
Total Time (30-74mins, 75-104mins- exclusive of procedures): Not Applicable
Data Reviewed
Review of Other/Old Records Reveals: Labs, Records, Radiology Studies and Testing
Update Note
Update Note:
Patient is remained very nontoxic and in no distress. Benign exam. Discharged to follow-up
ED Attending Note
-
Portions of this chart may have been created with voice recognition software.� Occasional wrong word or��sound alike� substitutions may have occurred due to the inherent limitations of voice recognition software.
Discharge Plan
Departure
Patient Disposition: Home (Routine Discharge)
Date of Disposition: 04/24/24
Time of Disposition: 21:15
Patient with high blood pressure during this ER visit?: No
Discharge Problem:
Recurrent nausea vomiting abdominal pain, Mild constipation, Palpitations
Instructions: Constipation, Adult (DC), Nausea and Vomiting, Adult (DC), Abdominal Pain
Prescriptions:
No Action
pantoprazole [Protonix] 20 MG tablet,delayed release (DR/EC)
20 mg PO DAILY
albuterol sulfate 90 mcg/actuation Hfa Aerosol Inhaler
1 - 2 puff INHALATION R DAILYPRN PRN (Reason: sob)
trazodone 50 mg Tablet
50 mg PO HSPRN PRN (Reason: sleep)
hydrocodone-acetaminophen 5-325 mg Tablet
1 tab PO Q6HPRN PRN (Reason: moderate pains)
morphine 15 mg tablet extended release
15 mg PO BIDPRN PRN (Reason: severe pain)
topiramate 50 mg Tablet
50 mg PO NOON
Medical Marijuana
2 tsp PO DAILYPRN PRN (Reason: sleep)
dicyclomine 20 mg tablet
20 mg PO QID PRN (Reason: gastrointestinal issues) Qty: 20 0RF
Referrals:
Dhaval Regalado, DO [Family Provider] - Follow up in 2-3 days
Activity Restrictions/Additional Instructions:
Follow-up closely with your primary care physician and GI specialist
Interventions
Interventions:
*Risk Screen - Suicide Last Done: 04/24/24 16:59
*General Assessment Last Done: 04/24/24 18:37
*Neglect/Abuse Screening Last Done: 04/24/24 16:59
ED- Fall Risk Assessment Last Done: 04/24/24 18:37
*ED COVID-19 Vaccine History Last Done: 04/24/24 18:37
BU-Iwnyiy-Wnaomntawt Assessment Last Done: 04/24/24 18:37
Discharge Date and Time
Print Language: GUYANESE
[2024-04-24 18:37] VITALS: BMI 18.4
[2024-04-24 18:42] VITALS: BP 101/62
[2024-04-24 18:59] LABS: Lipase 79 U/L (23-300)
[2024-04-24 21:15] VITALS: BP 89/50
== END 2024-04-24 21:25 | disposition home or self-care (01) ==
LOC: EMR 16:54
PROVIDERS: Emergency Medicine; EMERGENCY PHYSICIAN Emergency Medicine; FAMILY PHYSICIAN Family Medicine
DX: R10.9 Unspecified abdominal pain (principal); R11.0 Nausea; K59.00 Constipation, unspecified; R19.7 Diarrhea, unspecified; J45.909 Unspecified asthma, uncomplicated; K21.9 Gastro-esophageal reflux disease without esophagitis; F17.200 Nicotine dependence, unspecified, uncomplicated; Z87.19 Personal history of other diseases of the digestive system; Z90.49 Acquired absence of other specified parts of digestive tract; Z90.722 Acquired absence of ovaries, bilateral
CPT/HCPCS: 99283; 74022; 80053; 83690; 84443; 85025; 93005

== ENCOUNTER 2024-07-24 19:07 | Emergency (ER) | payer MEDICARE, SELFPAY ==
[2024-07-24 19:10] VITALS: BP 117/81
[2024-07-24 20:43] VITALS: BMI 17.3
--- NOTE | 2024-07-24 21:23 | ED.GENMED ---
History of Present Illness
General
Chief Complaint: Anxiety
Source: patient
Time Seen by Provider: 07/24/24 21:05
Nursing documentation reviewed up to this point in time: agreed with
History of Present Illness
History of Present Illness:
59-year-old female presents with high anxiety. She states that she has been on Reglan for 3 months and feels that coming off of it has contributed to her anxiety. Was seen by her primary care provider and ordered labs and states that her ALT has
been elevated. She does have a history of fatty liver but states that she is concerned about the liver function test. Her family doctor 'was supposed to order an ultrasound but did not send it until Thursday '. Denies fever, chills, chest pain, or
shortness of breath.
Past History
Past History
ED Past Medical History: Asthma, GERD (barretts) and Other (cervical radiculopathy, OA, chronic neck and back pain, Watson's esophagus, )
ED Past Surgical History: Cholecystectomy, Gynecological ( fatmata tubes and Oophorectomy) and Tonsilectomy
Social History
Tobacco: Smoker
Alcohol: None
Personal:
Living: with family
Review of Systems
Review of Systems
Allergies reviewed?: Yes
All Other Systems: Not applicable
Constitutional: Reports no symptoms
EENT: Reports no symptoms
Respiratory: Reports no symptoms
Cardiac: Reports no symptoms
ABD/GI: Reports no symptoms
: Reports no symptoms
Musculoskeletal: Reports no symptoms
Skin: Reports no symptoms
Neurological: Reports no symptoms
Endocrine: Reports no symptoms
Hematologic/Lymphatic: Reports no symptoms
Psychiatric: Reports anxiety
Phy Exam
General Physical Exam
General Presentation: well appearing and no apparent distress
General Skin: warm and dry
General Habitus: normal
General Mental: alert
General Hydration: appears well hydrated
ENT Exam
ENT Exam: EOMI, pharynx normal, neck supple and normocephalic
Eye Exam
Eye Exam: PERRL, cornea clear and conjunctiva normal
Cardiovascular Exam
Cardiovascular Exam: regular rate/rhythm, no edema, no murmur and normal peripheral pulses
Pulmonary Exam
Pulmonary Exam: lungs clear, no respiratory distress, no rales, no crackles, no rhonchi, no stridor, no wheezing and no cough
Gastrointestinal Exam
Gastrointestinal Exam: normal bowel sounds, non tender, soft, no organomegaly, no pulsatile mass and non distended
Neurological Exam
Neurological Exam: alert, oriented x3, no motor deficits and speech normal
Musculoskeletal Exam
Musculoskeletal Exam: full ROM and no edema
Skin Exam
Skin Exam: normal color, warm/dry, no rash and no petechia
Psychiatric Exam
Psychiatric Exam: normal mood/affect
Course
Orders/Labs/Results
Orders:
Orders
07/24/24 19:14
EKG [Electrocardiogram (*1)] Urgent
Reason for Study: Palpitations
EKG- Treatment ONCE
07/24/24 21:31
Complete Blood Count/With Diff Urgent
Comprehensive Metabolic Panel Urgent
Lipase Urgent
Abnormal Lab Results
07/24/24
21:31
WBC 12.0 H 10^3/uL
(4.8-10.8)
MCH 33.8 H pg
(27.0-31.0)
Absolute Neuts (auto) 6.8 H 10^3/uL
(1.4-6.5)
Absolute Lymphs (auto) 4.4 H 10^3/uL
(1.2-3.4)
Absolute Monos (auto) 0.7 H 10^3/uL
(0.1-0.6)
Chloride 108 H mmol/L
(98-107)
BUN 19 H mg/dl
(7-17)
Glucose 123 H mg/dl
(70-99)
ALT 36 H U/L
(0-35)
07/24/24 21:31
07/24/24 21:31
Vital Signs
Initial and Last Documented VS:
Initial Vital Signs
Temp Pulse Resp BP Pulse Ox
99.3 F 108 20 117/81 97
07/24/24 19:10 07/24/24 19:10 07/24/24 19:10 07/24/24 19:10 07/24/24 19:10
Last Documented Vital Signs
Temp Pulse Resp BP Pulse Ox
99.3 F 86 16 110/70 97
07/24/24 19:10 07/24/24 22:00 07/24/24 22:00 07/24/24 21:28 07/24/24 21:00
*EKG
Interpreted by ED Provider?: Yes
Heart Rate: 94
Rate: normal
[place]: normal axis
Interval: normal interval
QRS Pattern: normal QRS
Ischemia: no ischemia
*Pipe Organ Mechanic Interpretation
Rate: normal
Interpretation: normal
Rhythm: sinus
*Critical Care Note
Total Time (30-74mins, 75-104mins- exclusive of procedures): Not Applicable
ED Attending Note
-
Portions of this chart may have been created with voice recognition software.� Occasional wrong word or��sound alike� substitutions may have occurred due to the inherent limitations of voice recognition software.
Discharge Plan
Departure
Patient Disposition: Home (Routine Discharge)
Date of Disposition: 07/24/24
Time of Disposition: 22:29
Patient with high blood pressure during this ER visit?: Yes
Condition: Good
Discharge Problem:
Anxiety
Instructions: Anxiety, Adult (DC), Generalized Anxiety Disorder (DC)
Prescriptions:
No Action
trazodone 50 mg Tablet
50 mg PO HSPRN PRN (Reason: sleep)
hydrocodone-acetaminophen 5-325 mg Tablet
1 tab PO Q6HPRN PRN (Reason: moderate pains)
topiramate 50 mg Tablet
50 mg PO NOON
dicyclomine 20 mg tablet
20 mg PO QID PRN (Reason: gastrointestinal issues) Qty: 20 0RF
pantoprazole 40 mg Tablet,Delayed Release (Dr/Ec)
40 mg PO DAILY
Marijuana Gummy Or Oil
1 PO DAILYPRN PRN (Reason: pain)
Referrals:
Dhaval Regalado, [Family Provider] -
Activity Restrictions/Additional Instructions:
Thank You for choosing [facility].
It was a pleasure meeting you and taking part in your care. We hope for your continued healing and wellness.
Please read discharge instructions in their entirety. However, they are for general education and may not describe your exact diagnosis at discharge. Information on your ER visit and medical conditions were discussed with you along with appropriate
follow up information...
If indicated, please take your medications as instructed and indicated on discharge paperwork.
Please schedule a follow up appointment as directed. Call to schedule an appointment
Please return to the emergency department with ANY change in, persisting, or worsening of symptoms. If any of your symptoms do not improve, or persist, or become more severe within 6-12 hours, please return to the emergency department for further
care.
Please return to the emergency department if you develop a headache, neck pain/stiffness, fever greater than 100.4F, chest pain, shortness of breath, persistent nausea, vomiting, slurred speech, difficulty walking, numbness/tingling, weakness, signs
of infection or any other symptoms that are worrisome to you.
If you have any questions or concerns please do not hesitate to call the Hospital at
Interventions
Interventions:
*Risk Screen - Suicide Last Done: 07/24/24 19:10
*General Assessment Last Done: 07/24/24 19:10
*Neglect/Abuse Screening Last Done: 07/24/24 22:09
*ED- Fall Risk Assessment Last Done: 07/24/24 20:45
*ED COVID-19 Vaccine History Last Done: 07/24/24 20:45
ED- Cardiac Assessment Last Done: 07/24/24 20:45
ED-Psychological Assessment Last Done: 07/24/24 20:50
ED- Pulmonary Assessment Last Done: 07/24/24 20:49
Discharge Date and Time
Print Language: AZERI
[2024-07-24 21:28] VITALS: BP 110/70
[2024-07-24 21:37] LABS: % Basophils 0.5 % (0-2); % Eosinophils 0.6 % (0-6); % Immature Granulocytes 0.3 % (0-0.5); % Lymphocytes 36.6 % (20.5-51.1); % Monocytes 5.5 % (1.7-9.3); % Neutrophils 56.5 % (42.2-75.2); Absolute Basophils 0.1 10^3/uL (0-0.2); Absolute Eosinophils 0.1 10^3/uL (0-0.7); Absolute Lymphocytes 4.4 10^3/uL (1.2-3.4); Absolute Monocytes 0.7 10^3/uL (0.1-0.6); Absolute Neutrophils 6.8 10^3/uL (1.4-6.5); Hematocrit 42.5 % (37.0-47.0); Hemoglobin 15.1 g/dL (12.0-16.0); Mean Corp Hgb Conc. 35.5 g/dL (33.0-37.0); Mean Corpuscular Hgb 33.8 pg (27.0-31.0); Mean Corpuscular Volume 95.1 fL (81.0-99.0); Mean Platelet Volume 9.7 fL (7.4-10.4); Nucleated Red Blood Cells % 0 %; Platelet Count 215 10^3/uL (130-400); Red Blood Cell Count 4.47 10^6/uL (4.20-5.40); Red Cell Dist. Width 14.3 % (11.5-14.5)
[2024-07-24 21:50] LABS: ALT (SGPT) 36 U/L (0-35); AST (SGOT) 15 U/L (14-36); Alkaline Phosphatase 74 U/L (38-126); Blood Urea Nitrogen 19 mg/dl (7-17); Calcium 9.1 mg/dl (8.4-10.2); Carbon Dioxide 24 mmol/L (22-30); Chloride 108 mmol/L (98-107); Estimated Creatinine Clearance 59 ml/min; Glucose 123 mg/dl (70-99); Lipase 259 U/L (23-300); Potassium 3.8 mmol/L (3.5-5.1); Sodium 138 mmol/L (135-145); Total Bilirubin 0.5 mg/dl (0.2-1.3); Total Protein 6.4 g/dl (6.3-8.2); eGFR > 60.00
== END 2024-07-24 22:59 | disposition home or self-care (01) ==
LOC: EMR 19:07
PROVIDERS: EMERGENCY PHYSICIAN Student in an Organized Health Care Education/Training Program; FAMILY PHYSICIAN Family Medicine
DX: F41.9 Anxiety disorder, unspecified (principal); R00.2 Palpitations; R03.0 Elevated blood-pressure reading, without diagnosis of hypertension; K76.0 Fatty (change of) liver, not elsewhere classified; R79.89 Other specified abnormal findings of blood chemistry; J45.909 Unspecified asthma, uncomplicated; K22.70 Barrett's esophagus without dysplasia; M54.12 Radiculopathy, cervical region; M19.90 Unspecified osteoarthritis, unspecified site; G89.29 Other chronic pain; M54.9 Dorsalgia, unspecified; M54.2 Cervicalgia; K21.9 Gastro-esophageal reflux disease without esophagitis; F17.200 Nicotine dependence, unspecified, uncomplicated; Z90.49 Acquired absence of other specified parts of digestive tract; Z88.1 Allergy status to other antibiotic agents
CPT/HCPCS: 99283; 80053; 83690; 85025; 93005

== ENCOUNTER → 2024-07-28 13:39 | Outpatient (REF) | payer MEDICARE, SELFPAY | LOC: RAD 13:39 | PROVIDERS: ATTENDING PHYSICIAN Family Medicine; OTHER PHYSICIAN Internal Medicine Gastroenterology; REFERRING PHYSICIAN Specialist | DX: Z87.891 Personal history of nicotine dependence (principal) | CPT/HCPCS: 71271 ==

== ENCOUNTER → 2024-08-18 14:46 | Outpatient (REF) | payer MEDICARE, SELFPAY | LOC: RCS 14:46 | PROVIDERS: ATTENDING PHYSICIAN Internal Medicine Cardiovascular Disease; FAMILY PHYSICIAN Family Medicine | DX: R00.2 Palpitations (principal); R07.89 Other chest pain | CPT/HCPCS: 93306 ==

== ENCOUNTER 2024-08-20 17:28 | Emergency (ER) | payer MEDICARE, SELFPAY ==
[2024-08-20 17:34] VITALS: BP 96/66
[2024-08-20 17:56] LABS: % Basophils 0.6 % (0-2); % Eosinophils 0.8 % (0-6); % Immature Granulocytes 0.2 % (0-0.5); % Lymphocytes 41.9 % (20.5-51.1); % Monocytes 5.6 % (1.7-9.3); % Neutrophils 50.9 % (42.2-75.2); Absolute Basophils 0.1 10^3/uL (0-0.2); Absolute Eosinophils 0.1 10^3/uL (0-0.7); Absolute Lymphocytes 3.6 10^3/uL (1.2-3.4); Absolute Monocytes 0.5 10^3/uL (0.1-0.6); Absolute Neutrophils 4.4 10^3/uL (1.4-6.5); Hemoglobin 15.7 g/dL (12.0-16.0); Mean Corp Hgb Conc. 34.9 g/dL (33.0-37.0); Mean Corpuscular Hgb 33.4 pg (27.0-31.0); Mean Corpuscular Volume 95.7 fL (81.0-99.0); Nucleated Red Blood Cells % 0 %; Platelet Count 225 10^3/uL (130-400); White Blood Cell Count 8.6 10^3/uL (4.8-10.8)
[2024-08-20 18:17] LABS: ALT (SGPT) 10 U/L (0-35); AST (SGOT) 18 U/L (14-36); Albumin 4.5 g/dl (3.5-5.0); Alkaline Phosphatase 44 U/L (38-126); Blood Urea Nitrogen 11 mg/dl (7-17); Calcium 9.8 mg/dl (8.4-10.2); Carbon Dioxide 26 mmol/L (22-30); Chloride 109 mmol/L (98-107); Glucose 126 mg/dl (70-99); Lipase 190 U/L (23-300); Potassium 3.7 mmol/L (3.5-5.1); Sodium 139 mmol/L (135-145); Total Bilirubin 0.5 mg/dl (0.2-1.3); Total Protein 6.9 g/dl (6.3-8.2); eGFR > 60.00
--- NOTE | 2024-08-20 19:25 | ED.GENMED ---
History of Present Illness
General
Chief Complaint: Abdominal Pain
Source: patient and records
Time Seen by Provider: 08/20/24 18:38
History of Present Illness
History of Present Illness:
59-year-old female with past medical history of Watson's esophagus, GERD presenting to the emergency department for evaluation of abdominal pain that patient admits to being a chronic problem been ongoing for many years thought to be related to
slow motility, mostly no change in the symptoms however she notes that over the last few weeks pain seems to be a little bit more prominent after eating. Patient has had multiple workups for this in the past including CT scans, upper and lower
endoscopies, abdominal ultrasounds with no specific etiologies found. She is on daily Reglan for motility reasons, has attempted dicyclomine in the past and also reports using medical marijuana. Patient states that overall her pain is not much
different today than her usual. Social history was noted for smoking close to 2 packs/day, denies alcohol use. She denies any fevers, chills, rigors. She did state that earlier this week she needed use of MiraLAX for constipation which has not or
her bowel habits.
Past History
Past History
ED Past Medical History: Asthma, GERD (barretts) and Other (cervical radiculopathy, OA, chronic neck and back pain, Watson's esophagus, )
ED Past Surgical History: Cholecystectomy, Gynecological ( fatmata tubes and Oophorectomy) and Tonsilectomy
Social History
Tobacco: Smoker
Alcohol: None
Drug: None
Personal:
Living: with family
Review of Systems
Review of Systems
All Other Systems: ROS reviewed and negative except as documented in HPI and ROS
Phy Exam
Physical Exam
Physical Exam:
GENERAL: Alert , in no apparent distress
EYE: clear conjunctiva b/l
HEAD: NCAT
ENT: o/p clr, mmm.
CARDIAC: Regular rate and rhythm .
LUNGS: Clear breath sounds bilaterally, no acute respiratory distress, no wheezes/rales/rhonchi
ABDOMEN: Soft, without focal tenderness, normoactive bowel sounds, no r/g, no cvat
NEUROLOGICAL: Alert and oriented
SKIN: Warm and dry, skin intact.
MUSCULOSKELETAL: No edema, well perfused.
PSYCH: Normal and appropriate interaction.
Scores
Heart Failure Risk
Heart Failure Risk Score: Not Applicable
Heart Score for Chest Pain Patients
STEMI patient?: Not applicable
Withdrawal Assessment of Alcohol
Withdrawal Assessment Completed?: Not applicable
Course
Orders/Labs/Results
Orders:
Orders
08/20/24 17:39
Complete Blood Count/With Diff Urgent
Comprehensive Metabolic Panel Urgent
Lipase Urgent
08/20/24 18:59
CR Obstruct Series W/pa Chest Urgent
Comment:
Reason For Exam: abd pain
Abnormal Lab Results
08/20/24
17:39
MCH 33.4 H pg
(27.0-31.0)
Absolute Lymphs (auto) 3.6 H 10^3/uL
(1.2-3.4)
Chloride 109 H mmol/L
(98-107)
Glucose 126 H mg/dl
(70-99)
08/20/24 17:39
08/20/24 17:39
Vital Signs
Initial and Last Documented VS:
Initial Vital Signs
Temp Pulse Resp BP Pulse Ox
98.9 F 78 18 96/66 99
08/20/24 17:34 08/20/24 17:34 08/20/24 17:34 08/20/24 17:34 08/20/24 17:34
Last Documented Vital Signs
Temp Pulse Resp BP Pulse Ox
98.9 F 72 20 102/74 98
08/20/24 17:34 08/20/24 19:44 08/20/24 19:44 08/20/24 19:44 08/20/24 19:44
MDM/Problems Addressed
Differential Diagnosis Includes:
continued unspecified abdominal pain, constipation, obstruction, less concern for acute surgical abdomen given chronicity of symptoms
MDM/Problems Addressed:
59-year-old female presenting to the ER for evaluation of of continued/recurrent abdominal pain that has been ongoing for many years, multiple workups done without any specified etiologies found. Patient does note that over the week she did use
MiraLAX to help her with bowel movements. She has normoactive bowel sounds, no distention on exam. Patient has had multiple abdominal imaging here in the past. My suspicion for surgical abdomen is low given patient is without fevers,
well-appearing, no leukocytosis, normal chemistry. Will obtain an obstructive series to evaluate for any signs of bowel obstruction but anticipate this is likely acute on chronic exacerbation of patient's symptoms. Patient follows with GI at .
[facility] and is following her to follow-up with them following her discharge. X-ray pending.
Chronic conditions affecting care: Other (Unspecified abdominal pain)
*Radiology
Radiology exam reviewed: preliminary read by ED provider (Normal bowel gas pattern, no concern for obstruction)
*Pulse Oximetry
Patient hypoxic: no
*Critical Care Note
Total Time (30-74mins, 75-104mins- exclusive of procedures): Not Applicable
Data Reviewed
Review of Other/Old Records Reveals: Labs, Records and Radiology Studies
Source: patient and records
Patient Management
Social determinants of health affecting care: Other (Good outpatient follow-up)
Escalation/DeEscalation of care consider admission/obs:
Patient stable for discharge home and continued outpatient management with her GI team. I did send a prescription for Carafate to pharmacy. Patient aware of return precautions to the ER.
ED Attending Note
-
Portions of this chart may have been created with voice recognition software.� Occasional wrong word or��sound alike� substitutions may have occurred due to the inherent limitations of voice recognition software.
Discharge Plan
Departure
Patient Disposition: Home (Routine Discharge)
Date of Disposition: 08/20/24
Time of Disposition: 19:33
Patient with high blood pressure during this ER visit?: No
Discharge Problem:
Abdominal pain
Instructions: Abdominal Pain
Prescriptions:
New
sucralfate [Carafate] 100 mg/mL suspension
10 ml PO BID Qty: 500 0RF
No Action
trazodone 50 mg Tablet
50 mg PO HSPRN PRN (Reason: sleep)
hydrocodone-acetaminophen 5-325 mg Tablet
1 tab PO Q6HPRN PRN (Reason: moderate pains)
topiramate 50 mg Tablet
50 mg PO NOON
dicyclomine 20 mg tablet
20 mg PO QID PRN (Reason: gastrointestinal issues) Qty: 20 0RF
pantoprazole 40 mg Tablet,Delayed Release (Dr/Ec)
40 mg PO DAILY
Marijuana Gummy Or Oil
1 PO DAILYPRN PRN (Reason: pain)
Referrals:
UNKNOWN - PT DOES,NOT KNOW [Family Provider]
Interventions
Interventions:
*Risk Screen - Suicide Last Done: 08/20/24 17:34
*General Assessment Last Done: 08/20/24 17:34
*Neglect/Abuse Screening Last Done: 08/20/24 17:34
*ED- Fall Risk Assessment Last Done: 08/20/24 17:34
*ED COVID-19 Vaccine History Last Done: 08/20/24 17:34
*Nursing Disposition Last Done: 08/20/24 19:51
[place]-X[facility]px[facility]-Wnuyhmhx[facility] Assessment Last Done: 08/20/24 18:27
Discharge Date and Time
Discharge Date/Time: 08/20/24 20:17
Print Language: BANGLADESHI
[2024-08-20 19:44] VITALS: BP 102/74
== END 2024-08-20 20:17 | disposition home or self-care (01) ==
LOC: EMR 17:28
PROVIDERS: Student in an Organized Health Care Education/Training Program; EMERGENCY PHYSICIAN Emergency Medicine
DX: R10.9 Unspecified abdominal pain (principal); K59.00 Constipation, unspecified; K22.70 Barrett's esophagus without dysplasia; K21.9 Gastro-esophageal reflux disease without esophagitis; M54.12 Radiculopathy, cervical region; M19.90 Unspecified osteoarthritis, unspecified site; M54.2 Cervicalgia; M54.9 Dorsalgia, unspecified; J45.909 Unspecified asthma, uncomplicated; G89.29 Other chronic pain; F17.210 Nicotine dependence, cigarettes, uncomplicated; Z79.899 Other long term (current) drug therapy; Z90.49 Acquired absence of other specified parts of digestive tract; Z88.1 Allergy status to other antibiotic agents
CPT/HCPCS: 99283; 74022; 80053; 83690; 85025

== ENCOUNTER → 2024-08-31 14:59 | Outpatient (REF) | payer MEDICARE, SELFPAY | LOC: RAD 14:59 | PROVIDERS: ATTENDING PHYSICIAN Internal Medicine Gastroenterology; FAMILY PHYSICIAN Family Medicine | DX: R10.31 Right lower quadrant pain (principal) | CPT/HCPCS: 74177; Q9967 ==